=== PATIENT | male | born 1995 | race Caucasian/White ===

== ENCOUNTER 2021-07-17 08:31 | Outpatient (REF) | payer BC, SELFPAY ==
[2021-07-17 09:49] LABS: COVID-19 Test Positive (Negative)
== END 2021-07-17 08:32 | disposition home or self-care (01) ==
LOC: HO.LAB 08:31
PROVIDERS: Visit Provider Internal Medicine
DX: Z20.822 Contact with and (suspected) exposure to COVID-19 (principal)
CPT/HCPCS: 87635; C9803